=== PATIENT | male | born 1935 | race Two or more races ===

== ENCOUNTER 2021-04-07 10:08 | Outpatient (CLI) | payer OTHER | END 2021-04-07 10:13 | disposition home or self-care (01) | LOC: TOM 10:08 | PROVIDERS: ATTEND Surgery | DX: Q61.02 Congenital multiple renal cysts (principal); J84.178 Other interstitial pulmonary diseases with fibrosis in diseases classified elsewhere; I70.8 Atherosclerosis of other arteries; K57.90 Diverticulosis of intestine, part unspecified, without perforation or abscess without bleeding; D50.8 Other iron deficiency anemias; K92.1 Melena; R63.4 Abnormal weight loss; R97.8 Other abnormal tumor markers; J84.10 Pulmonary fibrosis, unspecified | CPT/HCPCS: 71260; 74178; Q9965 ==

== ENCOUNTER 2021-04-14 05:50 | Day surgery (SDC) | payer OTHER | END 2021-04-14 10:15 | disposition home or self-care (01) | LOC: AMB-ENDOS 05:50 | PROVIDERS: ATTEND Surgery | DX: C18.3 Malignant neoplasm of hepatic flexure (principal); C18.5 Malignant neoplasm of splenic flexure; K29.50 Unspecified chronic gastritis without bleeding; K44.9 Diaphragmatic hernia without obstruction or gangrene; Z20.822 Contact with and (suspected) exposure to COVID-19 ==

== ENCOUNTER 2021-05-06 08:00 | Outpatient (CLI) | payer OTHER | END 2021-05-06 08:05 | disposition home or self-care (01) | LOC: RAD 08:00 | PROVIDERS: ATTEND Surgery | DX: I10 Essential (primary) hypertension (principal); D50.8 Other iron deficiency anemias; R97.8 Other abnormal tumor markers; C18.3 Malignant neoplasm of hepatic flexure; C18.5 Malignant neoplasm of splenic flexure; R59.0 Localized enlarged lymph nodes; B96.81 Helicobacter pylori [H. pylori] as the cause of diseases classified elsewhere ==

== ENCOUNTER 2021-05-09 15:33 | Inpatient (IN) | payer OTHER ==
[2021-05-10] MEDS ORDERED: LOSARTAN POTASS50 MG (08:17)
[2021-05-16] MEDS ORDERED: HYOSCYAMINE0.125 M1 SL (11:50)
[2021-05-16] MEDS ORDERED: OXYC1TAB9 PO (11:51)
[2021-05-16] MEDS ORDERED: INTESTINEX680 M1 PO (11:52)
[2021-05-16] MEDS ORDERED: HEMATINIC-FOLI1 EACH PO (14:29)
== END 2021-05-16 14:39 | disposition home or self-care (01) | DRG 803 ==
LOC: SURH 15:33
PROVIDERS: Surgery; ADMIT Internal Medicine; ATTEND Internal Medicine
PROC: 30233N1 Transfusion of Nonautologous Red Blood Cells into Peripheral Vein, Percutaneous Approach (ICD-10-PCS; 2021-05-10)
PROC: 07BC3ZX Excision of Pelvis Lymphatic, Percutaneous Approach, Diagnostic (ICD-10-PCS; 2021-05-12)
PROC: 0DJD8ZZ Inspection of Lower Intestinal Tract, Via Natural or Artificial Opening Endoscopic (ICD-10-PCS; 2021-05-12)
PROC: 3E0F7SF Introduction of Other Gas into Respiratory Tract, Via Natural or Artificial Opening (ICD-10-PCS; 2021-05-12)
PROC: 0DTF4ZZ Resection of Right Large Intestine, Percutaneous Endoscopic Approach (ICD-10-PCS; principal; 2021-05-12 12:30)
DX: D64.9 Anemia, unspecified (principal); C18.3 Malignant neoplasm of hepatic flexure; C18.5 Malignant neoplasm of splenic flexure; K92.1 Melena; D50.0 Iron deficiency anemia secondary to blood loss (chronic); F43.20 Adjustment disorder, unspecified; Z20.822 Contact with and (suspected) exposure to COVID-19

== ENCOUNTER 2022-11-29 21:26 | Inpatient (IN) | payer OTHER ==
[~2022-11-29] VITALS: Ht 165.1 cm; Wt 63.5 kg
[~2022-11-29 21:26] MED LIST: HEMATINIC-FOLI1 EACH PO; HYOSCYAMINE0.125 M1 SL; INTESTINEX680 M1 PO; LOSARTAN POTASS50 MG; OXYC1TAB9 PO
[2022-11-29] MEDS ORDERED: COZAAR100 MG PO (21:45)
--- NOTE | 2022-11-29 21:45 | NUR ---
SE RECIBE PTE MASCULINO ALERTA Y ORIENTADO X2 EN COMPANIA DE FAMILIAR Y PARAMEDICO QUIEN REFIEREN DESORIENTACION Y NAUSEAS EN EL LURDES DE [place]. SE OBSERVA PTE CON CANALIZACION EN ANTEBRAZO L+ CON ANGIO #22 DE AMBULANCIA. SE UBICA EN OBSERVACION PARA EVALUACION MEDICA.
--- NOTE | 2022-11-29 22:34 | NUR ---
PTE MASCULINO ALERTA Y ORIENTADO X2 ES EVALUADO POR . JOVITA KELLOGG ORIENTA PTE SOBRE ORDENES DE [place] REFIERE COMPRENDER. COLECTA MUESTRAS DE LABORATORIOS Y CANALIZA VENA BAJO MEDIDAS ASEPTICAS. SE ADMINISTRAN MEDICAMENTOS, BAJO MEDIDAS ASEPTICAS. SE NOTIFICA A RADIOLOGIA PARA ESTUDIO PENDIENTE.
--- NOTE | 2022-11-29 23:37 | NUR ---
SE RECIBE PTE ALERTA Y ORIENTADO X2 EN SHOBHA CON BARANDAS ELEVADAS EN COMPANIA DE FAMILIAR. PTE CON CANALIZACION EN MANO IZQUIERDA CON ANGIO #18 AREA NERI DE EDEMA Y ENROJECIMIENTO. PTE CON DRIP DE .9NSS BAJANDO A 150ML/HR. PENDIENTE REALIZAR CT DE BRIANA. SE MATIENE PTE EN OBSERVACION POR TRATAMIENTO.
--- NOTE | 2022-11-30 07:48 | NUR ---
SE RECIBE PTE EN EL AREA DE OBSERVACION PTE ALERTA Y ORIENTADO POR 3, PTE NO PRESENTA DOLOR AL MOMENTO SE OBSERVA VENOPUNCION PATENTE Y NERI DE EDEMA PTE SE MANTIENE EN OBSERVACION Y BAJO TRATAMIENTO PTE EN ESPERA DEL DR. KILLIAN
[2022-12-13] MEDS ORDERED: LOSARTAN POTAS100 MG PO (14:38)
== END 2022-12-13 20:31 | disposition designated cancer center or children's hospital (05) | DRG 417 ==
LOC: ER 21:26 → SURH 11-30 11:56 → MEDJ 11-30 11:56 → SURH 11-30 19:57
PROVIDERS: ADMIT Internal Medicine; ATTEND Internal Medicine
PROC: 0FT44ZZ Resection of Gallbladder, Percutaneous Endoscopic Approach (ICD-10-PCS; principal; 2022-11-30)
PROC: BF13YZZ Fluoroscopy of Gallbladder and Bile Ducts using Other Contrast (ICD-10-PCS; 2022-11-30)
PROC: 0FJB8ZZ Inspection of Hepatobiliary Duct, Via Natural or Artificial Opening Endoscopic (ICD-10-PCS; 2022-11-30)
PROC: BW40ZZZ Ultrasonography of Abdomen (ICD-10-PCS; 2022-11-30)
PROC: BW28ZZZ Computerized Tomography (CT Scan) of Head (ICD-10-PCS; 2022-11-30)
PROC: CF1YYZZ Planar Nuclear Medicine Imaging of Hepatobiliary System and Pancreas using Other Radionuclide (ICD-10-PCS; 2022-11-30)
PROC: 02HV33Z Insertion of Infusion Device into Superior Vena Cava, Percutaneous Approach (ICD-10-PCS; 2022-12-08)
PROC: BW29ZZZ Computerized Tomography (CT Scan) of Head and Neck (ICD-10-PCS; 2022-12-10)
DX: K85.10 Biliary acute pancreatitis without necrosis or infection (principal); A41.9 Sepsis, unspecified organism; G93.41 Metabolic encephalopathy; K80.10 Calculus of gallbladder with chronic cholecystitis without obstruction; N17.9 Acute kidney failure, unspecified; N39.0 Urinary tract infection, site not specified; R65.10 Systemic inflammatory response syndrome (SIRS) of non-infectious origin without acute organ dysfunction; J90 Pleural effusion, not elsewhere classified; B96.20 Unspecified Escherichia coli [E. coli] as the cause of diseases classified elsewhere; R82.2 Biliuria; E11.9 Type 2 diabetes mellitus without complications; Z79.4 Long term (current) use of insulin; Z85.038 Personal history of other malignant neoplasm of large intestine; R74.01 Elevation of levels of liver transaminase levels; R55 Syncope and collapse

== ENCOUNTER 2024-08-18 09:28 | Inpatient (IN) | payer OTHER ==
[~2024-08-18] VITALS: Ht 165.1 cm; Wt 68.0 kg
[~2024-08-18 09:28] MED LIST changes: +COZAAR100 MG PO; +LOSARTAN POTAS100 MG PO
--- NOTE | 2024-08-18 09:48 | NUR ---
SE RECIBE PACIENTE ALERTA Y ORIENTADO X3 EL CUAL REFIERE VENIR POR EPISODIOS DE MELENA QUE INICIARON EL EZE EN LA MANANA. AL MOMENTO SE MIDEN S/V Y SE UBICA.
[2024-08-18] MEDS ORDERED: GLUMETZA500 MG PO (09:50)
[2024-08-18] MEDS ORDERED: PANTOPRAZOLE SODIUM 40 MG in 0.9 % SODIUM CHLORIDE 8 ML IV PUSH STA (10:04)
[2024-08-18] MEDS ORDERED: 0.9 % SODIUM CHLORIDE 1,000 ML IV SCH ×2 (10:15→15:00)
--- NOTE | 2024-08-18 11:04 | NUR ---
SE EDUCA A PACIENTE SOBRE TRATAMEINTO MEDICO EL CUAL AL MOMENTO REFIERE ENTENDER. SE PROCEDE A ADMINISTRAR MEDICAMENTOS SEGUNN ORDEN MEDICA Y BENITA DE MUESTRAS BAJO MEDIDAS ASEPTICAS LALI ORDEN MEDICA.
[2024-08-18 11:06] LABS: HEMATOCRIT 40.7 % (39.0-48.0); HEMOGLOBIN 13.9 g/dL (13-16.00); MEAN CELL VOLUME 92.8 fL (80.0-100.00); MEAN CORPUSCULAR HEMOGLOBIN 31.7 pg (27.00-32.0); MEAN CORPUSCULAR HGB CONC 34.2 g/dl (32.0-36.0); PLATELET COUNT 135 K/uL (150-450); RED BLOOD COUNT 4.38 M/uL (4.00-6.00); RED CELL DISTRIBUTION WIDTH 13.3 % (11.5-14.5)
[2024-08-18 11:22] LABS: INR 1.12; PARTIAL THROMBOPLASTIN TIME 22.4 SECONDS (22.0-34.0); PROTHROMBIN TIME 12.1 SECONDS (9.0-11.5)
[2024-08-18 11:27] LABS: ALBUMIN 3.6 gm/dL (3.4-5.0); BILIRUBIN TOTAL 1.39 mg/dL (0.3-1.2); CALCIUM 9.1 mg/dL (8.5-10.1); CREATININE SERUM 1.21 mg/dL (0.70-1.30); GFR 56.72; POTASSIUM 3.99 mEq/L (3.5-5.1); TOTAL PROTEIN 6.6 gm/dL (6.4-8.2)
[2024-08-18] MEDS ORDERED: ONDANSETRON HCL 2 MG/ML VIAL IV PRN (15:00)
[2024-08-18] MEDS ORDERED: THIAMINE HCL 100 MG/ML 2 ML VIAL IV SCH (20:05)
[2024-08-18] MEDS ORDERED: ENALAPRILAT DIHYDRATE 1.25 MG/ML VIAL IV PRN (20:15)
[2024-08-18] MEDS ORDERED: DEXTROSE 50 % IN WATER 0.5 G/ML DISP.SYRIN IV PRN (20:15)
[2024-08-18] MEDS ORDERED: INSULIN LISPRO 1,000 UNIT/10 ML UNITS SUBCUTANEO PRN (20:15)
[2024-08-19] VITALS (8 sets, daily range): BP systolic 94–115; BP diastolic 44–78; O2SAT 97–100
[2024-08-19 01:33] LABS: ob POSITIVE (NEGATIVE)
[2024-08-19 06:58] LABS: HEMATOCRIT 26.4 % (39.0-48.0); MEAN CELL VOLUME 93.3 fL (80.0-100.00); MEAN CORPUSCULAR HEMOGLOBIN 31.8 pg (27.00-32.0); MEAN CORPUSCULAR HGB CONC 34.2 g/dl (32.0-36.0); PLATELET COUNT 167 K/uL (150-450); RED BLOOD COUNT 2.83 M/uL (4.00-6.00); RED CELL DISTRIBUTION WIDTH 13.1 % (11.5-14.5)
[2024-08-19 07:46] LABS: ALBUMIN 2.7 gm/dL (3.4-5.0); BILIRUBIN TOTAL 0.85 mg/dL (0.3-1.2); CALCIUM 7.9 mg/dL (8.5-10.1); CREATININE SERUM 1.4 mg/dL (0.70-1.30); GFR 47.94; GLOBULINA 2.4 G/DL (2.4-3.5); MAGNESIUM 1.8 mg/dL (1.8-2.4); PHOSPHOROUS 3.8 mg/dL (2.5-4.9); POTASSIUM 5.35 mEq/L (3.5-5.1); TOTAL PROTEIN 5.1 gm/dL (6.4-8.2)
[2024-08-19] MEDS ORDERED: LACTOBACILLUS ACIDOPHILUS 1 CAP CAP PO SCH (09:00)
[2024-08-19] MEDS ORDERED: AMINOCAPROIC ACID IV SCH ×2 (09:00→21:00)
[2024-08-19] MEDS ORDERED: FOLIC ACID 1 MG TABLET PO SCH (09:00)
[2024-08-19] MEDS ORDERED: SOD FERRIC GLUC COMPLX/SUCROSE 62.5 MG in 0.9 % SODIUM CHLORIDE 50 ML IV SCH (09:00)
[2024-08-19] MEDS ORDERED: PSYLLIUM HUSK 1 PKT PACKET PO SCH (09:00)
[2024-08-19] MEDS ORDERED: SODIUM CHLORIDE 0.9% IV SCH ×2 (09:00→21:00)
[2024-08-19] MEDS ORDERED: Cyanocobalamin/Mecobalamin 1 TAB.SL SL SCH (09:00)
[2024-08-19] MEDS ORDERED: PANTOPRAZOLE SODIUM 40 MG/VIAL VIAL IV SCH ×2 (09:00)
[2024-08-19] MEDS ORDERED: SODIUM POLYSTYRENE SULFONATE 30G/8 TSP PO SCH (10:30)
[2024-08-19] MEDS ORDERED: FUROsemide 20 MG/2 ML VIAL IV PRN (11:45)
[2024-08-20] VITALS (18 sets, daily range): BP systolic 79–142; BP diastolic 50–96; O2SAT 90–100
[2024-08-20] MEDS ORDERED: NOREPINEPHRINE BITARTRATE 8 MG in DEXTROSE 5 % IN WATER 250 ML IV SCH (05:15)
[2024-08-20 11:35] LABS: HEMATOCRIT 24.6 % (39.0-48.0); MEAN CELL VOLUME 87.9 fL (80.0-100.00); RED CELL DISTRIBUTION WIDTH 14.8 % (11.5-14.5)
[2024-08-20 11:42] LABS: HEMOGLOBIN 8.6 g/dL (13-16.00); MEAN CORPUSCULAR HEMOGLOBIN 30.7 pg (27.00-32.0); PLATELET COUNT 100 K/uL (150-450)
[2024-08-20] MEDS ORDERED: PHYTONADIONE 10 MG/ML AMPUL IV SCH (11:45)
[2024-08-20] MEDS ORDERED: CALCIUM GLUCONATE 100 MG/ML VIAL IV STA (12:01)
[2024-08-20 12:07] LABS: INR 1.14; PARTIAL THROMBOPLASTIN TIME 25.7 SECONDS (22.0-34.0); PROTHROMBIN TIME 12.3 SECONDS (9.0-11.5)
[2024-08-20] MEDS ORDERED: 0.9 % SODIUM CHLORIDE 1,000 ML IV SCH (12:15)
[2024-08-20 12:21] LABS: ALBUMIN 2.6 gm/dL (3.4-5.0); BILIRUBIN TOTAL 1.08 mg/dL (0.3-1.2); CREATININE SERUM 1.08 mg/dL (0.70-1.30); GFR 64.68; MAGNESIUM 1.6 mg/dL (1.8-2.4); POTASSIUM 3.34 mEq/L (3.5-5.1); TOTAL PROTEIN 4.6 gm/dL (6.4-8.2)
[2024-08-20 12:24] LABS: PHOSPHOROUS 1.4 mg/dL (2.5-4.9)
[2024-08-20] MEDS ORDERED: MAGNESIUM SULFATE IN WATER 50 ML IV NR (13:15)
[2024-08-20] MEDS ORDERED: CALCIUM GLUCONATE 100 MG/ML VIAL IV ONE (13:15)
[2024-08-20] MEDS ORDERED: DESMOPRESSIN ACETATE 4 MCG/ML AMPUL IV NR (13:15)
[2024-08-20] MEDS ORDERED: POTASSIUM PHOS,M-BASIC-D-BASIC 3 MM/ML VIAL IV NR (13:32)
[2024-08-20 15:26] LABS: HEMATOCRIT 29.9 % (39.0-48.0); HEMOGLOBIN 10.5 g/dL (13-16.00); MEAN CELL VOLUME 87.2 fL (80.0-100.00); MEAN CORPUSCULAR HEMOGLOBIN 30.5 pg (27.00-32.0); RED BLOOD COUNT 3.43 M/uL (4.00-6.00); RED CELL DISTRIBUTION WIDTH 14.5 % (11.5-14.5)
[2024-08-20 15:34] LABS: PLATELET COUNT 75 K/uL (150-450)
[2024-08-20] MEDS ORDERED: POTASSIUM CHLORIDE 20MEQ/100ML H2O PB IV ONE (23:00)
[2024-08-21] VITALS (12 sets, daily range): BP systolic 79–118; BP diastolic 49–70; O2SAT 98–100
[2024-08-21] MEDS ORDERED: AA 4.25%/CAL/LYTES/DEXT 5% 1,000 ML PERIFERAL SCH (17:00)
[2024-08-21 17:33] LABS: HEMATOCRIT 27.4 % (39.0-48.0); HEMOGLOBIN 9.6 g/dL (13-16.00); MEAN CORPUSCULAR HEMOGLOBIN 30.5 pg (27.00-32.0); MEAN CORPUSCULAR HGB CONC 35.1 g/dl (32.0-36.0); RED BLOOD COUNT 3.15 M/uL (4.00-6.00)
[2024-08-21 17:38] LABS: PLATELET COUNT 73 K/uL (150-450)
[2024-08-21 18:05] LABS: ALBUMIN 2.5 gm/dL (3.4-5.0); BILIRUBIN TOTAL 1.16 mg/dL (0.3-1.2); CALCIUM 6.9 mg/dL (8.5-10.1); CHOL HDL RATIO 3.2 (0-5.0); CREATININE SERUM 0.96 mg/dL (0.70-1.30); GFR 74.09; GLOBULINA 2.1 G/DL (2.4-3.5); MAGNESIUM 2.3 mg/dL (1.8-2.4); POTASSIUM 3.98 mEq/L (3.5-5.1); TOTAL PROTEIN 4.6 gm/dL (6.4-8.2)
[2024-08-21] MEDS ORDERED: SODIUM CHLORIDE 0.45 % 1,000 ML IV SCH (18:30)
[2024-08-21] MEDS ORDERED: POTASSIUM PHOS,M-BASIC-D-BASIC 3 MM/ML VIAL IV SCH ×2 (19:21→20:00)
[2024-08-21] MEDS ORDERED: MELATONIN 5 MG TABLET PO SCH (21:00)
[2024-08-21] MEDS ORDERED: PANTOPRAZOLE SODIUM 80 MG in 0.9 % SODIUM CHLORIDE 100 ML IV SCH (21:15)
[2024-08-21 22:11] LABS: MEAN CELL VOLUME 86.9 fL (80.0-100.00)
[2024-08-21 22:13] LABS: HEMATOCRIT 21.7 % (39.0-48.0); MEAN CORPUSCULAR HEMOGLOBIN 30.4 pg (27.00-32.0); PLATELET COUNT 78 K/uL (150-450)
[2024-08-21 22:14] LABS: HEMOGLOBIN 7.6 g/dL (13-16.00)
[2024-08-22] VITALS (15 sets, daily range): BP systolic 79–139; BP diastolic 50–82; O2SAT 94–100
[2024-08-22] MEDS ORDERED: CALCIUM GLUCONATE 100 MG/ML VIAL IV NR (10:41)
[2024-08-22 21:10] LABS: HEMATOCRIT 25.4 % (39.0-48.0); MEAN CELL VOLUME 84.4 fL (80.0-100.00); MEAN CORPUSCULAR HEMOGLOBIN 29.9 pg (27.00-32.0); MEAN CORPUSCULAR HGB CONC 35.4 g/dl (32.0-36.0); RED BLOOD COUNT 3.01 M/uL (4.00-6.00); RED CELL DISTRIBUTION WIDTH 16.3 % (11.5-14.5)
[2024-08-22 21:11] LABS: PLATELET COUNT 58 K/uL (150-450)
[2024-08-22 21:27] LABS: INR 1.06; PARTIAL THROMBOPLASTIN TIME 23.9 SECONDS (22.0-34.0); PROTHROMBIN TIME 11.5 SECONDS (9.0-11.5)
[2024-08-22 21:31] LABS: ALBUMIN 2.6 gm/dL (3.4-5.0); BILIRUBIN TOTAL 1.56 mg/dL (0.3-1.2); CALCIUM 7.3 mg/dL (8.5-10.1); CREATININE SERUM 0.86 mg/dL (0.70-1.30); GFR 84.12; GLOBULINA 2.3 G/DL (2.4-3.5); MAGNESIUM 2.3 mg/dL (1.8-2.4); PHOSPHOROUS 2.2 mg/dL (2.5-4.9); POTASSIUM 3.85 mEq/L (3.5-5.1); TOTAL PROTEIN 4.9 gm/dL (6.4-8.2)
[2024-08-23] VITALS (7 sets, daily range): BP systolic 85–123; BP diastolic 51–95; O2SAT 97–100
[2024-08-23 13:28] LABS: HEMATOCRIT 28.6 % (39.0-48.0); HEMOGLOBIN 9.8 g/dL (13-16.00); MEAN CELL VOLUME 87.1 fL (80.0-100.00); MEAN CORPUSCULAR HEMOGLOBIN 29.8 pg (27.00-32.0); MEAN CORPUSCULAR HGB CONC 34.2 g/dl (32.0-36.0); RED BLOOD COUNT 3.28 M/uL (4.00-6.00); RED CELL DISTRIBUTION WIDTH 16.4 % (11.5-14.5)
[2024-08-23 13:31] LABS: PLATELET COUNT 76 K/uL (150-450)
[2024-08-23 21:32] LABS: HEMATOCRIT 23.9 % (39.0-48.0); MEAN CELL VOLUME 87.1 fL (80.0-100.00); MEAN CORPUSCULAR HGB CONC 34.2 g/dl (32.0-36.0); RED BLOOD COUNT 2.74 M/uL (4.00-6.00); RED CELL DISTRIBUTION WIDTH 16.9 % (11.5-14.5)
[2024-08-23 21:33] LABS: HEMOGLOBIN 8.2 g/dL (13-16.00); MEAN CORPUSCULAR HEMOGLOBIN 29.9 pg (27.00-32.0); PLATELET COUNT 99 K/uL (150-450)
[2024-08-24 04:00] VITALS: BP 121/70; O2SAT 96
[2024-08-24 07:12] VITALS: BP 121/65; O2SAT 96
[2024-08-24 12:00] VITALS: BP 121/75; O2SAT 96
[2024-08-24 14:21] LABS: ABG PH 7.499 (7.35-7.45); ABG PO2 118.3 mmHg (80-100); ABG pCO2 26.7 mmHg (35-45); BASE EXCESS -1.3 mmol/l; SaO2 98.9 %
[2024-08-24 14:22] LABS: BICARBONATE 20.3 mmol/l (23-25)
[2024-08-24 14:23] LABS: Tco2 20.3 mmol/l; allen test SATISFACTORY; puncture site RADIAL RIGHT
[2024-08-24 15:15] VITALS: BP 123/75; O2SAT 100
[2024-08-24 20:00] VITALS: BP 123/57; O2SAT 100
[2024-08-24 23:41] VITALS: BP 108/74; O2SAT 100
[2024-08-25] VITALS (7 sets, daily range): BP systolic 97–117; BP diastolic 57–70; O2SAT 95–99
[2024-08-25] MEDS ORDERED: PANTOPRAZOLE SODIUM 80 MG in 0.9 % SODIUM CHLORIDE 100 ML IV SCH (02:45)
[2024-08-25 08:22] LABS: HEMATOCRIT 30.3 % (39.0-48.0); HEMOGLOBIN 10.5 g/dL (13-16.00); MEAN CELL VOLUME 85.9 fL (80.0-100.00); MEAN CORPUSCULAR HEMOGLOBIN 29.7 pg (27.00-32.0); MEAN CORPUSCULAR HGB CONC 34.5 g/dl (32.0-36.0); RED BLOOD COUNT 3.52 M/uL (4.00-6.00); RED CELL DISTRIBUTION WIDTH 15.3 % (11.5-14.5)
[2024-08-25 08:27] LABS: PLATELET COUNT 123 K/uL (150-450)
[2024-08-25] MEDS ORDERED: FUROsemide 20 MG/2 ML VIAL ONE (08:31)
[2024-08-25] MEDS ORDERED: FUROsemide 20 MG/2 ML VIAL IV STA ×2 (08:40→09:52)
[2024-08-25 09:02] LABS: INR 1.08; PROTHROMBIN TIME 11.7 SECONDS (9.0-11.5)
[2024-08-25 09:51] LABS: ABG PH 7.543 (7.35-7.45); ABG pCO2 26.6 mmHg (35-45); BASE EXCESS 1.4 mmol/l; BICARBONATE 22.4 mmol/l (23-25); SaO2 91.1 %; Tco2 23.2 mmol/l
[2024-08-25] MEDS ORDERED: PIPERACILLIN/TAZOBACTAM SODIUM 3.375 GM in DEXTROSE 5 % IN WATER 100 ML IV SCH ×2 (09:59→18:00)
[2024-08-25 10:08] LABS: allen test SATISFACTORY; puncture site RADIAL RIGHT
[2024-08-25 10:09] LABS: o2 32 %
[2024-08-25] MEDS ORDERED: ACETAMINOPHEN 500 MG GEL..CAP PO PRN (10:15)
[2024-08-25 11:53] LABS: ALBUMIN 2.7 gm/dL (3.4-5.0); BILIRUBIN TOTAL 3.19 mg/dL (0.3-1.2); CALCIUM 8.1 mg/dL (8.5-10.1); CREATININE SERUM 0.97 mg/dL (0.70-1.30); GFR 73.21; POTASSIUM 4.33 mEq/L (3.5-5.1); TOTAL PROTEIN 5.7 gm/dL (6.4-8.2)
[2024-08-25] MEDS ORDERED: FUROsemide 20 MG/2 ML VIAL IV SCH (17:00)
[2024-08-25] MEDS ORDERED: CEFTRIAXONE SODIUM 2,000 MG in 0.9 % SODIUM CHLORIDE 100 ML IV SCH (18:13)
[2024-08-25] MEDS ORDERED: AMINOCAPROIC ACID 250 MG/ML VIAL IV ONE (18:30)
[2024-08-25 21:54] LABS: PLEURAL FLUID APPEARANCE TURBID; PLEURAL FLUID COLOR YELLOW
[2024-08-25 22:24] LABS: TP PLEURAL FLUID 1.4 g/dl
[2024-08-25 22:35] LABS: MONONUCLEAR 80 %; POLYMORPHONUCLEAR 20 %
[2024-08-26 03:59] VITALS: BP 88/58; O2SAT 96
[2024-08-26 07:04] LABS: HEMATOCRIT 24.3 % (39.0-48.0); MEAN CORPUSCULAR HGB CONC 34.8 g/dl (32.0-36.0); PLATELET COUNT 141 K/uL (150-450); RED BLOOD COUNT 2.79 M/uL (4.00-6.00); RED CELL DISTRIBUTION WIDTH 15.6 % (11.5-14.5)
[2024-08-26 07:05] VITALS: BP 84/63; O2SAT 100
[2024-08-26 07:13] LABS: MEAN CORPUSCULAR HEMOGLOBIN 30.4 pg (27.00-32.0)
[2024-08-26 07:14] LABS: HEMOGLOBIN 8.5 g/dL (13-16.00)
[2024-08-26 07:30] LABS: ERYTHROCYTE SEDIMENTATION RATE 6 mm/hr
[2024-08-26 07:33] LABS: ALBUMIN 2.1 gm/dL (3.4-5.0); BILIRUBIN TOTAL 1.53 mg/dL (0.3-1.2); CALCIUM 7.5 mg/dL (8.5-10.1); CREATININE SERUM 1.18 mg/dL (0.70-1.30); GFR 58.39; GLOBULINA 2.4 G/DL (2.4-3.5); MAGNESIUM 2.3 mg/dL (1.8-2.4); PHOSPHOROUS 4.5 mg/dL (2.5-4.9); TOTAL PROTEIN 4.5 gm/dL (6.4-8.2)
[2024-08-26 07:34] LABS: C-REACTIVE PROTEIN 15.5 MG/DL (0.00-0.29)
[2024-08-26 12:00] VITALS: BP 97/65; O2SAT 99
[2024-08-26 12:14] LABS: HEMATOCRIT 31.6 % (39.0-48.0); HEMOGLOBIN 10.9 g/dL (13-16.00); MEAN CELL VOLUME 86.9 fL (80.0-100.00); MEAN CORPUSCULAR HEMOGLOBIN 30.1 pg (27.00-32.0); MEAN CORPUSCULAR HGB CONC 34.6 g/dl (32.0-36.0); PLATELET COUNT 152 K/uL (150-450); RED BLOOD COUNT 3.63 M/uL (4.00-6.00); RED CELL DISTRIBUTION WIDTH 15.3 % (11.5-14.5)
[2024-08-26] MEDS ORDERED: FF) Daptomycin 500 MG/VIAL IV SCH (13:00)
[2024-08-26 15:33] VITALS: BP 95/64; O2SAT 100
[2024-08-26] MEDS ORDERED: CALCIUM GLUCONATE 100 MG/ML VIAL IV ONE (18:45)
[2024-08-26 20:00] VITALS: BP 112/71; O2SAT 100
[2024-08-26] MEDS ORDERED: FUROsemide 20 MG/2 ML VIAL IV SCH (21:00)
[2024-08-26 23:20] VITALS: BP 103/66; O2SAT 100
[2024-08-27 04:00] VITALS: BP 93/62; O2SAT 99
[2024-08-27 06:46] LABS: HEMOGLOBIN 9.6 g/dL (13-16.00); MEAN CELL VOLUME 86.3 fL (80.0-100.00); MEAN CORPUSCULAR HEMOGLOBIN 30.7 pg (27.00-32.0); MEAN CORPUSCULAR HGB CONC 35.6 g/dl (32.0-36.0); PLATELET COUNT 148 K/uL (150-450); RED BLOOD COUNT 3.13 M/uL (4.00-6.00); RED CELL DISTRIBUTION WIDTH 15.7 % (11.5-14.5)
[2024-08-27 06:52] LABS: ALBUMIN 2.1 gm/dL (3.4-5.0); BILIRUBIN TOTAL 0.91 mg/dL (0.3-1.2); CALCIUM 7.8 mg/dL (8.5-10.1); CREATININE SERUM 0.81 mg/dL (0.70-1.30); GFR 90.14; GLOBULINA 2.9 G/DL (2.4-3.5); MAGNESIUM 2.3 mg/dL (1.8-2.4); PHOSPHOROUS 3.2 mg/dL (2.5-4.9); POTASSIUM 3.67 mEq/L (3.5-5.1)
[2024-08-27 07:00] VITALS: BP 99/61; O2SAT 100
[2024-08-27] MEDS ORDERED: MEROPENEM 500 MG/VIAL VIAL IV SCH (09:00)
[2024-08-27 12:00] VITALS: BP 113/65; BP 97/34; O2SAT 100
[2024-08-27 15:17] VITALS: BP 121/86; O2SAT 100
[2024-08-27] MEDS ORDERED: MIDAZOLAM HCL 2 MG/2 ML VIAL IV PUSH ONE (19:00)
[2024-08-27] MEDS ORDERED: FentaNYL CITRATE/PF 50MCG/ML 2ML VIAL IJ ONE (19:00)
[2024-08-27 20:00] VITALS: BP 113/98; O2SAT 100
[2024-08-27 23:26] VITALS: BP 98/60; O2SAT 97
[2024-08-28] VITALS (7 sets, daily range): BP systolic 91–114; BP diastolic 53–62; O2SAT 94–100
[2024-08-28] MEDS ORDERED: MEROPENEM 500 MG/VIAL VIAL IV SCH
[2024-08-28 06:45] LABS: HEMATOCRIT 27.5 % (39.0-48.0); HEMOGLOBIN 9.3 g/dL (13-16.00); MEAN CELL VOLUME 88.7 fL (80.0-100.00); MEAN CORPUSCULAR HEMOGLOBIN 30.1 pg (27.00-32.0); MEAN CORPUSCULAR HGB CONC 33.9 g/dl (32.0-36.0); PLATELET COUNT 178 K/uL (150-450); RED CELL DISTRIBUTION WIDTH 15.6 % (11.5-14.5)
[2024-08-28 07:45] LABS: ALBUMIN 2.1 gm/dL (3.4-5.0); BILIRUBIN TOTAL 0.98 mg/dL (0.3-1.2); CALCIUM 7.9 mg/dL (8.5-10.1); CREATININE SERUM 0.82 mg/dL (0.70-1.30); GFR 88.87; GLOBULINA 2.9 G/DL (2.4-3.5); MAGNESIUM 2.3 mg/dL (1.8-2.4); PHOSPHOROUS 2.8 mg/dL (2.5-4.9); POTASSIUM 3.88 mEq/L (3.5-5.1)
[2024-08-29 04:42] VITALS: BP 96/65; O2SAT 95
[2024-08-29 06:45] LABS: HEMATOCRIT 28.4 % (39.0-48.0); HEMOGLOBIN 9.9 g/dL (13-16.00); MEAN CELL VOLUME 86.7 fL (80.0-100.00); MEAN CORPUSCULAR HEMOGLOBIN 30.3 pg (27.00-32.0); PLATELET COUNT 228 K/uL (150-450); RED BLOOD COUNT 3.28 M/uL (4.00-6.00); RED CELL DISTRIBUTION WIDTH 15.3 % (11.5-14.5)
[2024-08-29 07:18] VITALS: BP 95/57; O2SAT 100
[2024-08-29 07:21] LABS: ALBUMIN 2.1 gm/dL (3.4-5.0); BILIRUBIN TOTAL 1.01 mg/dL (0.3-1.2); CREATININE SERUM 0.77 mg/dL (0.70-1.30); GFR 95.57; MAGNESIUM 2.3 mg/dL (1.8-2.4); PHOSPHOROUS 2.1 mg/dL (2.5-4.9); POTASSIUM 4.65 mEq/L (3.5-5.1); TOTAL PROTEIN 5.1 gm/dL (6.4-8.2)
[2024-08-29 07:28] LABS: CALCIUM 7.8 mg/dL (8.5-10.1)
[2024-08-29 12:00] VITALS: BP 104/64; O2SAT 96
[2024-08-29] MEDS ORDERED: SODIUM PHOS,M-BASIC-D-BASIC 3 MMOL/ML VIAL IV NR (12:30)
[2024-08-29 15:35] VITALS: BP 97/72; O2SAT 100
[2024-08-30 01:05] VITALS: BP 114/59; O2SAT 98
[2024-08-30 08:00] VITALS: BP 92/57; O2SAT 95
[2024-08-30] MEDS ORDERED: PANTOPRAZOLE SODIUM 40 MG/VIAL VIAL IV SCH (09:00)
[2024-08-30] MEDS ORDERED: SOD FERRIC GLUC COMPLX/SUCROSE 125 MG in 0.9 % SODIUM CHLORIDE 100 ML IV SCH (09:00)
[2024-08-30] MEDS ORDERED: FUROsemide 20 MG TABLET PO SCH (09:00)
[2024-08-30 09:11] LABS: ALBUMIN 2.3 gm/dL (3.4-5.0); BILIRUBIN TOTAL 0.9 mg/dL (0.3-1.2); CALCIUM 8.1 mg/dL (8.5-10.1); CREATININE SERUM 0.82 mg/dL (0.70-1.30); GFR 88.87; GLOBULINA 3.1 G/DL (2.4-3.5); POTASSIUM 4.44 mEq/L (3.5-5.1); TOTAL PROTEIN 5.4 gm/dL (6.4-8.2)
[2024-08-30 09:24] LABS: HEMATOCRIT 30.1 % (39.0-48.0); HEMOGLOBIN 10.1 g/dL (13-16.00); MEAN CELL VOLUME 88.5 fL (80.0-100.00); MEAN CORPUSCULAR HEMOGLOBIN 29.7 pg (27.00-32.0); MEAN CORPUSCULAR HGB CONC 33.5 g/dl (32.0-36.0); PLATELET COUNT 283 K/uL (150-450); RED CELL DISTRIBUTION WIDTH 15.8 % (11.5-14.5)
[2024-08-30] MEDS ORDERED: 0.9 % SODIUM CHLORIDE 1,000 ML IV SCH (12:00)
[2024-08-30] MEDS ORDERED: (FF) Daptomycin 50 MG/ML IV SCH (13:00)
[2024-08-30] MEDS ORDERED: RINGERS SOLUTION,LACTATED 1,000 ML IV STA (13:16)
[2024-08-30 16:25] VITALS: BP 100/62; O2SAT 98
[2024-08-30] MEDS ORDERED: PANTOPRAZOLE SODIUM 40 MG TABLET.DR PO SCH (17:00)
[2024-08-30] MEDS ORDERED: AMINO ACIDS/PROTEIN HYDROLYS 30 ML BLIST.PACK PO SCH (17:00)
[2024-08-31 00:25] VITALS: BP 106/67; O2SAT 96
[2024-08-31 07:41] LABS: ALBUMIN 2.1 gm/dL (3.4-5.0); BILIRUBIN TOTAL 0.8 mg/dL (0.3-1.2); CREATININE SERUM 0.8 mg/dL (0.70-1.30); GFR 91.44; POTASSIUM 4.43 mEq/L (3.5-5.1); TOTAL PROTEIN 5.1 gm/dL (6.4-8.2)
[2024-08-31 07:57] LABS: HEMATOCRIT 29.8 % (39.0-48.0); MEAN CELL VOLUME 88.2 fL (80.0-100.00); MEAN CORPUSCULAR HEMOGLOBIN 29.5 pg (27.00-32.0); MEAN CORPUSCULAR HGB CONC 33.4 g/dl (32.0-36.0); PLATELET COUNT 320 K/uL (150-450); RED BLOOD COUNT 3.38 M/uL (4.00-6.00); RED CELL DISTRIBUTION WIDTH 15.9 % (11.5-14.5)
[2024-08-31 08:00] VITALS: BP 96/51; O2SAT 95
[2024-08-31] MEDS ORDERED: IRON FUM,PS/FOLIC/BCOMP,C NO.9 1 CAP CAPSULE PO SCH (09:00)
[2024-08-31 16:14] VITALS: BP 102/67; O2SAT 97
[2024-09-01 00:20] VITALS: BP 100/67; O2SAT 95
[2024-09-01 10:22] VITALS: BP 120/84; O2SAT 99
[2024-09-01 16:51] VITALS: BP 109/71; O2SAT 95
[2024-09-02 01:23] VITALS: BP 122/67; O2SAT 98
[2024-09-02 06:51] LABS: HEMATOCRIT 30.3 % (39.0-48.0); HEMOGLOBIN 10.3 g/dL (13-16.00); MEAN CELL VOLUME 88.4 fL (80.0-100.00); PLATELET COUNT 422 K/uL (150-450); RED BLOOD COUNT 3.42 M/uL (4.00-6.00); RED CELL DISTRIBUTION WIDTH 15.5 % (11.5-14.5)
[2024-09-02 07:34] LABS: ALBUMIN 2.2 gm/dL (3.4-5.0); BILIRUBIN TOTAL 0.45 mg/dL (0.3-1.2); CALCIUM 8.2 mg/dL (8.5-10.1); CREATININE SERUM 1.08 mg/dL (0.70-1.30); GFR 64.68; GLOBULINA 3.2 G/DL (2.4-3.5); MAGNESIUM 2.2 mg/dL (1.8-2.4); POTASSIUM 4.9 mEq/L (3.5-5.1); TOTAL PROTEIN 5.4 gm/dL (6.4-8.2)
[2024-09-02 08:00] VITALS: BP 122/67; O2SAT 96
[2024-09-02 16:00] VITALS: BP 106/59; O2SAT 98
[2024-09-02] MEDS ORDERED: SODIUM PHOS,M-BASIC-D-BASIC 3 MMOL/ML VIAL IV SCH (17:00)
[2024-09-03 00:10] VITALS: BP 90/58; O2SAT 96
[2024-09-03 08:00] VITALS: BP 113/65; O2SAT 97
[2024-09-03] MEDS ORDERED: RINGERS SOLUTION,LACTATED 500 ML IV STA (09:29)
[2024-09-03 16:00] VITALS: BP 110/72; O2SAT 97
[2024-09-04 01:32] VITALS: BP 103/65; O2SAT 95
[2024-09-04 07:40] LABS: ALBUMIN 2.1 gm/dL (3.4-5.0); BILIRUBIN TOTAL 0.51 mg/dL (0.3-1.2); CALCIUM 8.1 mg/dL (8.5-10.1); CREATININE SERUM 0.79 mg/dL (0.70-1.30); GFR 92.78; PHOSPHOROUS 2.1 mg/dL (2.5-4.9); POTASSIUM 4.39 mEq/L (3.5-5.1); TOTAL PROTEIN 5.1 gm/dL (6.4-8.2)
[2024-09-04 09:28] VITALS: BP 104/58; O2SAT 96
[2024-09-04] MEDS ORDERED: AMPICILLIN SODIUM/SULBACTAM NA 3,000 MG in 0.9 % SODIUM CHLORIDE 100 ML IV SCH (12:00)
[2024-09-04 16:00] VITALS: BP 116/61; O2SAT 95
[2024-09-04] MEDS ORDERED: CEFTRIAXONE SODIUM 2,000 MG in 0.9 % SODIUM CHLORIDE 100 ML IV SCH (17:00)
[2024-09-05] VITALS: BP 103/68; O2SAT 94
[2024-09-05 08:00] VITALS: BP 116/75; O2SAT 96
[2024-09-05 16:06] VITALS: BP 98/62; O2SAT 94
[2024-09-06 00:56] VITALS: BP 119/78; O2SAT 95
[2024-09-06 08:00] VITALS: BP 124/84; O2SAT 95
[2024-09-06 16:43] VITALS: BP 135/63; O2SAT 99
[2024-09-07] VITALS: BP 122/77; O2SAT 95
[2024-09-07 08:00] VITALS: BP 122/69; O2SAT 95
[2024-09-07 16:00] VITALS: BP 114/67; O2SAT 95
[2024-09-08 01:00] VITALS: BP 125/78; O2SAT 95
== END 2024-09-08 14:00 | disposition home or self-care (01) | DRG 378 ==
LOC: ER 09:28 → SEC-K 15:21 → SURG 15:21 → SURH 15:21 → SURG 22:52 → ICU 08-19 18:08 → SURH 08-29 16:33
PROVIDERS: General Practice; Internal Medicine; Radiology Vascular & Interventional Radiology; Surgery; ADMIT Internal Medicine; ATTEND Internal Medicine
PROC: BW21ZZZ Computerized Tomography (CT Scan) of Abdomen and Pelvis (ICD-10-PCS; principal; 2024-08-18)
PROC: 02HV33Z Insertion of Infusion Device into Superior Vena Cava, Percutaneous Approach (ICD-10-PCS; 2024-08-19)
PROC: 30233N1 Transfusion of Nonautologous Red Blood Cells into Peripheral Vein, Percutaneous Approach (ICD-10-PCS; 2024-08-19)
PROC: 30233N1 Transfusion of Nonautologous Red Blood Cells into Peripheral Vein, Percutaneous Approach (ICD-10-PCS; 2024-08-19)
PROC: B246ZZZ Ultrasonography of Right and Left Heart (ICD-10-PCS; 2024-08-20)
PROC: 30233R1 Transfusion of Nonautologous Platelets into Peripheral Vein, Percutaneous Approach (ICD-10-PCS; 2024-08-20)
PROC: CD271ZZ Tomographic (Tomo) Nuclear Medicine Imaging of Gastrointestinal Tract using Technetium 99m (Tc-99m) (ICD-10-PCS; 2024-08-25)
PROC: 5A0935A Assistance with Respiratory Ventilation, Less than 24 Consecutive Hours, High Flow/Velocity Cannula (ICD-10-PCS; 2024-08-25)
PROC: 0W993ZZ Drainage of Right Pleural Cavity, Percutaneous Approach (ICD-10-PCS; 2024-08-26)
PROC: CD271ZZ Tomographic (Tomo) Nuclear Medicine Imaging of Gastrointestinal Tract using Technetium 99m (Tc-99m) (ICD-10-PCS; 2024-08-26)
PROC: 0DJ08ZZ Inspection of Upper Intestinal Tract, Via Natural or Artificial Opening Endoscopic (ICD-10-PCS; 2024-08-27)
PROC: 0DJD8ZZ Inspection of Lower Intestinal Tract, Via Natural or Artificial Opening Endoscopic (ICD-10-PCS; 2024-08-28)
PROC: B246ZZZ Ultrasonography of Right and Left Heart (ICD-10-PCS; 2024-08-29)
DX: K57.31 Diverticulosis of large intestine without perforation or abscess with bleeding (principal); J81.1 Chronic pulmonary edema; J90 Pleural effusion, not elsewhere classified; N17.8 Other acute kidney failure; N39.0 Urinary tract infection, site not specified; R78.81 Bacteremia; I12.9 Hypertensive chronic kidney disease with stage 1 through stage 4 chronic kidney disease, or unspecified chronic kidney disease; E11.22 Type 2 diabetes mellitus with diabetic chronic kidney disease; N18.9 Chronic kidney disease, unspecified; D69.6 Thrombocytopenia, unspecified; R00.1 Bradycardia, unspecified; R09.02 Hypoxemia; D50.0 Iron deficiency anemia secondary to blood loss (chronic); Z79.4 Long term (current) use of insulin; K21.9 Gastro-esophageal reflux disease without esophagitis; B96.29 Other Escherichia coli [E. coli] as the cause of diseases classified elsewhere; B95.2 Enterococcus as the cause of diseases classified elsewhere; Z85.038 Personal history of other malignant neoplasm of large intestine